=== PATIENT | male | born 1995 | race Caucasian/White ===

== ENCOUNTER 2023-11-05 07:16 | Emergency (ER) | payer OTHER ==
[~2023-11-05] VITALS: Ht 165.1 cm; Wt 97.6 kg
[~2023-11-05 07:16] MED LIST: AZITHROMYCIN250 MG PO; VENTOLIN HFA18 GM INH
[2023-11-05] MEDS ORDERED: CEPHALEXIN MONOHYDRATE 500 MG CAP PO ONE (08:00)
[2023-11-05] MEDS ORDERED: CEPHALEXIN500 M1 PO (08:09)
[2023-11-05 08:15] VITALS: BP 121/95
== END 2023-11-05 08:22 | disposition home or self-care (01) ==
LOC: ED 07:16
DX: N48.9 Disorder of penis, unspecified (principal)
CPT/HCPCS: 99282; A9270